=== PATIENT | male | born 1955 | race Caucasian/White ===

== ENCOUNTER → 2025-06-01 16:35 | Outpatient (REF) | payer MEDICARE, OTHER, SELFPAY | LOC: RAD 16:35 | PROVIDERS: ATTENDING PHYSICIAN Nurse Practitioner Adult Health | DX: M54.2 Cervicalgia (principal); M41.86 Other forms of scoliosis, lumbar region; M54.16 Radiculopathy, lumbar region | CPT/HCPCS: 72052; 72110 ==